=== PATIENT | male | born 1975 | race Caucasian/White ===

== ENCOUNTER 2018-06-24 20:08 | Emergency (ER) | payer SELFPAY ==
[2018-06-24 20:29] VITALS: BP 148/60
[2018-06-24] MEDS ORDERED: Nitrofurantoin Macrocrystals* 50 MG CAP PO ONE (20:44)
--- NOTE | 2018-06-24 20:48 | UC ---
Complaint Male HPI - HPI Summary HPI Summary: Started w/ bladder pressure incomplete emptying and occasional dysuria today. denies new partners; penile discharge; penile sores. - History of Current Complaint Chief Complaint: UCGU Stated Complaint: URINARY Time Seen by Provider: 06/24/18 20:28 Hx Obtained From: Patient Onset/Duration: Sudden Onset Pain Intensity: 8 Pain Scale Used: 0-10 Numeric Character: Sharp, Burning Aggravating Factor(s): Voiding Alleviating Factor(s): Meds - azo, Other Associated Signs And Symptoms: Negative: Back Pain - Allergies/Home Medications Allergies/Adverse Reactions: Allergies Allergy/AdvReac Type Severity Reaction Status Date / Time No Known Allergies Allergy Verified 06/24/18 20:20 Home Medications: Home Medications Ibuprofen 200 mg PO 06/24/18 [History] Penicillin VK 500 MG TAB(NF) [Penicillin VK 500 mg Tab] 06/24/18 [History] Pumpkin Seed Extract/Soy Germ [Azo Bladder Control/Go-Le] 1 cap PO 06/24/18 [ History] PMH/Surg Hx/FS Hx/Imm Hx Previously Healthy: Yes - Surgical History Surgical History: Yes Surgery Procedure, Year, and Place: EAR TUBES AND HERNIA CHILD. dental extractions - Social History Alcohol Use: Occasionally Substance Use Type: None Smoking Status (MU): Current Every Day Smoker Amount Used/How Often: 1 ppd Review of Systems All Other Systems Reviewed And Are Negative: Yes Constitutional: Positive: Fever. Negative: Chills, Fatigue Gastrointestinal: Negative: Abdominal Pain, Vomiting, Diarrhea, Nausea Genitourinary: Positive: Dysuria, Urgency. Negative: Hematuria, Frequency, Vaginal/Penile Burning, Vaginal/Penile Itching, Vaginal/Penile Discharge, Vaginal/Penile Pain, Vaginal/Penile Tenderness Physical Exam Triage Information Reviewed: Yes Appearance: Well-Appearing Vital Signs: Initial Vital Signs Temp 100.7 F 06/24/18 20:21 Pulse 119 06/24/18 20:21 Resp 18 06/24/18 20:21 BP 148/60 06/24/18 20:21 Pulse Ox 97 06/24/18 20:21 Vital Signs Reviewed: Yes Respiratory Exam: Normal Cardiovascular Exam: Normal Abdomen Description: Positive: Nontender, Soft. Negative: CVA Tenderness (R), CVA Tenderness (L) Male Genital Exam: Positive: Other - DECLINED Neurological: Positive: Alert Complaint Male Course/Dx - Course Course Of Treatment: Started today w/ fever; symptoms of dysuria and incomplete emptying of bladder sensation. He declined exam as well as leaving more urine for cx/UA. Took Azo for his symptoms. Plan is to send urine for gc/chlam / and tx empirically for simple cystitis. I had long conversation w/ him re: importance of cx as it would help identify type of bacteria but pt. felt like he couldn't give anymore urine. - Differential Dx/Diagnosis Differential Diagnosis/HQI/PQRI: Urinary Tract Infection, Other - sti Provider Diagnosis: Cystitis Discharge - Sign-Out/Discharge Documenting (check all that apply): Patient Departure All imaging exams completed and their final reports reviewed: No Studies - Discharge Plan Condition: Good Disposition: HOME Prescriptions: Nitrofurantoin Macrocrystals* [Macrodantin 100 mg*] 100 mg PO BID 7 Days #13 cap Patient Education Materials: Urinary Tract Infection in Men (ED) Forms: *Work Release Referrals: No Primary Care Phys,NOPCP [Primary Care Provider] - Additional Instructions: Please follow up with your pcp if symptoms persist. [facility] is accepting new patients: [phone] - Billing Disposition and Condition Condition: GOOD Disposition: Home
[2018-06-27 14:00] LABS: Neisseria gonorrhoeae (GC) RNA Negative (Negative)
== END 2018-06-24 21:09 | disposition home or self-care (01) ==
LOC: UCCORT 20:08
DX: N30.90 Cystitis, unspecified without hematuria (principal); F17.210 Nicotine dependence, cigarettes, uncomplicated
CPT/HCPCS: 87491; 87591; 99212; A9270-GY; G0463

== ENCOUNTER 2018-11-13 12:05 | Emergency (ER) | payer SELFPAY ==
[2018-11-13 12:42] VITALS: BP 134/71
--- NOTE | 2018-11-13 13:08 | UC ---
General HPI - HPI Summary HPI Summary: 43-year-old male comes in with chief complaint of headache nausea vomiting chills body aches. He woke up with the symptoms this morning. The headache was severe 10 out of 10. It's diffuse headache all the way around his head. No complaint of any neck pain. Did have some low back pain yesterday and he has some low back pain today. He woke up with a headache the headache did not wake him up. Does not have a history of headaches. He felt like he vomited because the headache was so bad. he went to work and he did drink a lot of water wondering if he is dehydrated. He ended up throwing up water. he also took some acetaminophen. The headache went away just before he got here to clinic. 3 days ago he had ticks on him. He had to on his penis one on his right side. His was able to remove them. No bull's-eye rash. - History of Current Complaint Chief Complaint: UCGeneralIllness Stated Complaint: HEADACHE FEVER NAUSEA VOMITING ACHY Time Seen by Provider: 11/13/18 12:41 Pain Intensity: 3 - Allergy/Home Medications Allergies/Adverse Reactions: Allergies Allergy/AdvReac Type Severity Reaction Status Date / Time No Known Allergies Allergy Verified 11/13/18 12:32 Home Medications: Home Medications Acetaminophen TAB* [Tylenol TAB*] 650 mg PO Q4H PRN 11/13/18 [History Confirmed 11/13/18] PMH/Surg Hx/FS Hx/Imm Hx Previously Healthy: Yes - Surgical History Surgical History: Yes Surgery Procedure, Year, and Place: EAR TUBES AND HERNIA CHILD. dental extractions - Family History Known Family History: Positive: Non-Contributory - Social History Alcohol Use: Occasionally Substance Use Type: None Smoking Status (MU): Former Smoker Type: Cigarettes Amount Used/How Often: 1 ppd Have You Smoked in the Last Year: Yes When Did the Patient Quit Smoking/Using Tobacco: 09/2018 Review of Systems All Other Systems Reviewed And Are Negative: Yes Constitutional: Positive: Chills Skin: Positive: Other - SEE HPI Eyes: Positive: Negative ENT: Positive: Negative Respiratory: Positive: Negative Cardiovascular: Positive: Negative Gastrointestinal: Positive: Vomiting, Nausea Motor: Positive: Negative Neurovascular: Positive: Negative Musculoskeletal: Positive: Negative Neurological: Positive: Headache Psychological: Positive: Negative Is Patient Immunocompromised?: No Physical Exam Triage Information Reviewed: Yes Appearance: Well-Appearing, No Pain Distress, Well-Nourished Vital Signs: Initial Vital Signs Temp 98.1 F 11/13/18 12:34 Pulse 74 11/13/18 12:34 Resp 16 11/13/18 12:34 BP 134/71 11/13/18 12:34 Pulse Ox 99 11/13/18 12:34 Vital Signs Reviewed: Yes Eye Exam: Normal Eyes: Positive: Conjunctiva Clear, Other: - PERRLA/EOMI ENT: Positive: Pharynx normal, TMs normal Neck: Positive: Supple, Nontender Respiratory: Positive: Lungs clear, Normal breath sounds, No respiratory distress Cardiovascular: Positive: RRR Musculoskeletal: Positive: Strength Intact, ROM Intact Neurological: Positive: Alert, Muscle Tone Normal Psychological Exam: Normal Psychological: Positive: Normal Response To Family, Age Appropriate Behavior Skin: Positive: Other - PUNCTATE AREA OF ERYTHEMA ON PENIS GLANS. NO BULLS EYE RASH. Course/Dx - Course Course Of Treatment: Discussed the possibility of Lyme disease with the patient and his . The symptoms are due to Lyme disease the treatment would be doxycycline 100 mg twice a day for 14 days. At this time the patient would like to start the treatment. At this time the patient does not have a headache. We discussed the signs and symptoms of meningitis and stroke. At this time the patient does not have symptoms of either one. The plan will be to treat as if this is Lyme however if his condition worsens at all or has any signs of stroke or meningitis he is to go the emergency department. - Diagnoses Provider Diagnosis: Tick bite, Headache, Chills, Nausea & vomiting Discharge - Sign-Out/Discharge Documenting (check all that apply): Patient Departure All imaging exams completed and their final reports reviewed: No Studies - Discharge Plan Condition: Stable Disposition: HOME Prescriptions: DOXYcycline CAP(*) [DOXYcycline 100MG CAP(*)] 100 mg PO BID #28 cap Patient Education Materials: Tick Bite (ED), Acute Headache (ED), Acute Nausea and Vomiting (ED) Forms: *Work Release Referrals: [facility] [Outside] Additional Instructions: FOLLOW UP WITH YOUR DOCTOR IF NOT COMPLETELY IMPROVED. GO TO THE EMERGENCY DEPARTMENT IF YOUR CONDITION WORSENS; HEADACHES, WEAKNESS, NUMBNESS, DIFFICULTY WITH VISION OR SPEECH, FEVERS, NECK/BACK PAIN, SIGNS OF MENINGITIS OR ANY QUESTIONS OR CONCERNS. - Billing Disposition and Condition Condition: STABLE Disposition: Home
== END 2018-11-13 13:14 | disposition home or self-care (01) ==
LOC: UCCORT 12:05
DX: T63.481A Toxic effect of venom of other arthropod, accidental (unintentional), initial encounter (principal); Y92.9 Unspecified place or not applicable; R51 Headache; R68.83 Chills (without fever); R11.2 Nausea with vomiting, unspecified; Z87.891 Personal history of nicotine dependence
CPT/HCPCS: 99212; G0463

== ENCOUNTER 2019-07-24 15:19 | Emergency (ER) | payer SELFPAY ==
[2019-07-24 15:55] VITALS: BP 121/66
--- NOTE | 2019-07-24 17:02 | UC ---
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 >48 hour ago he had nause, vomitng x 5 and malaise/headache symptom free x 48 hours - History of Current Complaint Chief Complaint: UCGI Stated Complaint: VOMITING/HEADACHE Time Seen by Provider: 07/24/19 16:51 Hx Obtained From: Patient Onset/Duration: Gradual Onset, Lasting Hours, Resolved Timing: Constant Severity Initially: Mild Severity Currently: None Pain Intensity: 0 Pain Scale Used: 0-10 Numeric Location: Diffuse Radiates: No Character: Cramping Aggravating Factor(s): Other - NA Alleviating Factor(s): Spontaneous Resolution Associated Signs And Symptoms: Positive: Other - resolved - Allergies/Home Medications Allergies/Adverse Reactions: Allergies Allergy/AdvReac Type Severity Reaction Status Date / Time No Known Allergies Allergy Verified 07/24/19 15:49 Home Medications: Home Medications Ibuprofen 200 mg PO PRN 06/24/18 [History] Acetaminophen TAB* [Tylenol TAB*] 650 mg PO Q4H PRN 11/13/18 [History Confirmed 11/13/18] DOXYcycline CAP(*) [DOXYcycline 100MG CAP(*)] 100 mg PO BID #28 cap 11/13/18 [Rx ] PMH/Surg Hx/FS Hx/Imm Hx Previously Healthy: Yes - Surgical History Surgical History: Yes Surgery Procedure, Year, and Place: EAR TUBES AND HERNIA CHILD. dental extractions - Family History Known Family History: Positive: Hypertension Negative: Cardiac Disease, Diabetes - Social History Alcohol Use: Rare Substance Use Type: None Smoking Status (MU): Former Smoker Type: Cigarettes Amount Used/How Often: 1 ppd Have You Smoked in the Last Year: Yes When Did the Patient Quit Smoking/Using Tobacco: 09/2018 Review of Systems All Other Systems Reviewed And Are Negative: Yes Constitutional: Positive: Negative Skin: Positive: Negative Eyes: Positive: Negative ENT: Positive: Negative Respiratory: Positive: Negative Cardiovascular: Positive: Negative Gastrointestinal: Positive: Negative Genitourinary: Positive: Negative Motor: Positive: Negative Neurovascular: Positive: Negative Musculoskeletal: Positive: Negative Neurological/Mental Status: Positive: Negative Psychological: Positive: Negative Physical Exam Triage Information Reviewed: Yes Appearance: Well-Appearing, No Pain Distress, Well-Nourished Vital Signs: Initial Vital Signs Temp 98 F 07/24/19 15:51 Pulse 73 07/24/19 15:51 Resp 18 07/24/19 15:51 BP 121/66 07/24/19 15:51 Pulse Ox 98 07/24/19 15:51 Vital Signs Reviewed: Yes Eyes: Positive: Conjunctiva Clear, Other: - anicteric sclera ENT: Positive: Hearing grossly normal. Negative: Nasal congestion, Nasal drainage, Trismus, Muffled voice, Hoarse voice Dental Exam: Normal Neck: Positive: Supple, Nontender, No Lymphadenopathy Respiratory: Positive: Lungs clear, Normal breath sounds, No respiratory distress, No accessory muscle use Cardiovascular: Positive: RRR, No Murmur Abdomen Description: Positive: Nontender, No Organomegaly, Soft. Negative: CVA Tenderness (R), CVA Tenderness (L) Bowel Sounds: Positive: Present Musculoskeletal: Positive: ROM Intact, No Edema Neurological: Positive: Alert Psychological Exam: Normal Skin Exam: Normal Abd Pain Male Course/Dx - Differential Dx/Clinical Impression Provider Diagnosis: Hx of vomiting Discharge ED - Sign-Out/Discharge Documenting (check all that apply): Patient Departure All imaging exams completed and their final reports reviewed: No Studies - Discharge Plan Condition: Stable Disposition: HOME Forms: *Gen. Provider Communication Referrals: No Primary Care Phys,NOPCP [Primary Care Provider] - Additional Instructions: call for any questions return for any problems - Billing Disposition and Condition Condition: STABLE Disposition: Home
== END 2019-07-24 17:01 | disposition home or self-care (01) ==
LOC: UCCORT 15:19
DX: R11.10 Vomiting, unspecified (principal); Z87.891 Personal history of nicotine dependence
CPT/HCPCS: 99211; G0463